=== PATIENT | male | born 1965 | race Caucasian/White ===

== ENCOUNTER 2016-07-31 17:01 | Outpatient (CLI) | payer OTHER ==
[~2016-07-31 17:01] MED LIST: ADDERALL XR25 MG PO; AMBIEN5 MG PO; ATORVASTATIN CA20 MG PO; LISINOPRIL10 MG PO; MULTIPLE VITAMIN PO; NORCO1 TA2 PO; VENTOLIN HFA IN; VERAMYST27.5 MCG; VITAMIN D-31000 UNIT PO; XIGDUO PO
== END 2016-07-31 23:00 ==
LOC: LAB SRH 17:01
DX: E11.9 Type 2 diabetes mellitus without complications (principal); E66.01 Morbid (severe) obesity due to excess calories; F90.0 Attention-deficit hyperactivity disorder, predominantly inattentive type
CPT/HCPCS: 90074; 91286